=== PATIENT | male | born 1930 | race Caucasian/White ===

== ENCOUNTER 2017-04-24 08:32 | Inpatient (IN) | payer MEDICARE, OTHER ==
[~2017-04-24] VITALS: Ht 177.8 cm; Wt 103.5 kg
[~2017-04-24 08:32] MED LIST: ALLO100T PO; AMLO2.5T PO; ATO40T PO; CAR3125T PO; EZET10TA6 PO; LOSA50TA6 PO
[2017-04-24] MEDS ORDERED: IODIXANOL 320MG/ML 100ML BTL IV ONE (09:54)
[2017-04-24] MEDS ORDERED: LIDOCAINE 2%HCL (LOCAL ANESTH.) INJ 20ML MDV ONE (09:54)
[2017-04-24] MEDS ORDERED: SODIUM BICARBONATE 50ML VIAL 150 ML in SOD CHL 0.45% 1,000 ML IV ONE (10:00)
[2017-04-24] MEDS ORDERED: ANGIOMAX 250 MG VIAL IV ONE ×2 (10:14→11:46)
[2017-04-24] MEDS ORDERED: fentaNYL CITRATE 100 MCG/2 ML VL ONE (10:15)
[2017-04-24] MEDS ORDERED: SODIUM CHL 0.9% 50 ML ONE ×2 (10:15→11:46)
[2017-04-24] MEDS ORDERED: MIDAZOLAM HCL 1MG/1ML-2 ML VIAL ONE (10:15)
[2017-04-24] MEDS ORDERED: FAMOTIDINE (10MG/ML) 2ML VL IV ONE (10:21)
[2017-04-24] MEDS ORDERED: diphenhdrAMINE HCL 50 MG/1 ML VL ONE (10:21)
[2017-04-24] MEDS ORDERED: methylPREDNISolone SOD SUCC 125 MG/2 ML VL ONE (10:21)
[2017-04-24] MEDS ORDERED: CLOPIDOGREL 300 MG TAB ONE (11:34)
[2017-04-24] MEDS ORDERED: ASPirin 325 MG TAB ONE (11:35)
[2017-04-24] MEDS ORDERED: ACETAMINOPHEN 500 MG TAB PO PRN (12:45)
[2017-04-24] MEDS ORDERED: NITROGLYCERIN 0.4 MG SL TAB SL PRN ×2 (12:45)
[2017-04-24] MEDS ORDERED: MORPHINE SULF INJ 2 MG/ML SYRINGE 1ML IV PRN (12:45)
[2017-04-24] MEDS ORDERED: MORPHINE SULFATE 4 MG/ML SYR/VIAL IV PRN (12:45)
[2017-04-24] MEDS ORDERED: HYDROcodone-ACET 5/325MG TAB PO PRN (12:45)
[2017-04-24] MEDS ORDERED: ONDANSETRON HCL 4 MG/2 ML VIAL IV PRN (12:45)
[2017-04-24] MEDS ORDERED: MILK OF MAGNESIA 30ML SUSP PO ONE (12:45)
[2017-04-24] MEDS: amLODIPine BESYLATE 5 MG TAB PO SCH (13:30)
[2017-04-24 17:02] VITALS: BP 144/86
[2017-04-24 21:23] VITALS: BP 126/69
[2017-04-24] MEDS ORDERED: ATORVASTATIN 20 MG TAB PO SCH (22:00)
[2017-04-24] MEDS: CARVEDILOL 3.125 MG TAB PO SCH (22:04)
[2017-04-25 05:47] VITALS: BP 139/80
[2017-04-25 06:55] LABS: Basophils # (auto) 0 uL; Basophils % (auto) 0.1 % (0.0-2.0); Eosinophils # (auto) 0 uL; Hematocrit 38.9 % (41.0-53.0); Hemoglobin 13.1 g/dL (13.5-17.5); Lymphocytes # (auto) 0.9 uL; Lymphocytes % (auto) 7.6 % (10.0-50.0); Mean Corpuscular Hemoglobin 33.5 pg (28.0-32.0); Mean Corpuscular Hgb Conc. 33.7 g/dL (32.0-36.0); Mean Corpuscular Volume 99.4 fL (80.0-100.0); Monocytes # (auto) 0.5 uL; Monocytes % (auto) 4.5 % (0.0-12.0); Neutrophils # (auto) 10.8 uL; Neutrophils % (auto) 87.8 % (37.0-80.0); Nucleated Red Blood Cells % 0.1 %; Platelet Count (auto) 201 10^3/uL (140-450); Red Blood Cells 3.91 10^6/uL (4.5-5.90); Red Cell Distribution Width 13.2 % (11.8-14.3); White Blood Cell 12.3 10^3/uL (4.4-10.8)
[2017-04-25 07:31] LABS: Albumin 2.7 g/dL (3.4-5.0); Bilirubin, Total 0.4 mg/dL (0.2-1.0); Calcium 8.8 mg/dL (8.5-10.1); Potassium 4.4 mmol/L (3.5-5.1); Total Protein 6.7 g/dL (6.4-8.2)
[2017-04-25 08:00] VITALS: BP 142/82
[2017-04-25 08:25] VITALS: BP 142/82
[2017-04-25] MEDS ORDERED: ALLOPURINOL 100 MG TAB PO SCH (10:00)
[2017-04-25] MEDS ORDERED: CLOPIDOGREL BISULFATE 75 MG TAB PO SCH (10:00)
[2017-04-25] MEDS ORDERED: LOSARTAN POTASSIUM 50 MG TAB PO SCH (10:00)
[2017-04-25] MEDS ORDERED: ASPirin-EC 81 mg tab PO SCH (10:00)
[2017-04-25] MEDS: amLODIPine BESYLATE 5 MG TAB PO SCH (10:46)
[2017-04-25] MEDS: CARVEDILOL 3.125 MG TAB PO SCH (10:48)
[2017-04-25 11:57] VITALS: BP 133/78
[2017-04-25 14:30] VITALS: BP 133/78
== END 2017-04-25 15:15 | disposition home or self-care (01) | DRG 247 ==
LOC: CATH 08:32 → TELE-CENTR 08:33
PROVIDERS: ADMIT Internal Medicine Cardiovascular Disease; ATTEND Internal Medicine Cardiovascular Disease
PROC: 027034Z Dilation of Coronary Artery, One Artery with Drug-eluting Intraluminal Device, Percutaneous Approach (ICD-10-PCS; principal; 2017-04-24)
PROC: B240ZZ3 Ultrasonography of Single Coronary Artery, Intravascular (ICD-10-PCS; 2017-04-24)
PROC: 4A023N7 Measurement of Cardiac Sampling and Pressure, Left Heart, Percutaneous Approach (ICD-10-PCS; 2017-04-24)
PROC: B2111ZZ Fluoroscopy of Multiple Coronary Arteries using Low Osmolar Contrast (ICD-10-PCS; 2017-04-24)
PROC: B41F1ZZ Fluoroscopy of Right Lower Extremity Arteries using Low Osmolar Contrast (ICD-10-PCS; 2017-04-24)
DX: I25.10 Atherosclerotic heart disease of native coronary artery without angina pectoris (principal); E78.00 Pure hypercholesterolemia, unspecified; I12.9 Hypertensive chronic kidney disease with stage 1 through stage 4 chronic kidney disease, or unspecified chronic kidney disease; N18.9 Chronic kidney disease, unspecified; E78.5 Hyperlipidemia, unspecified; Z79.02 Long term (current) use of antithrombotics/antiplatelets; Z79.82 Long term (current) use of aspirin; Z95.5 Presence of coronary angioplasty implant and graft; I25.2 Old myocardial infarction; Z95.0 Presence of cardiac pacemaker; Z88.7 Allergy status to serum and vaccine; Z88.0 Allergy status to penicillin; Z91.013 Allergy to seafood; Z88.8 Allergy status to other drugs, medicaments and biological substances
CPT/HCPCS: 92928; 92978; 93458; G0278; 36415; 80053; 80061; 83036; 84443; 85025; 87081; 99152; 99153; C1874; J2250; J3490; Q9967